=== PATIENT | male | born 1960 | race Caucasian/White ===

== ENCOUNTER → 2016-06-19 | Outpatient (CLI) | payer BC ==
[2016-06-19 14:45] LABS: BASO % 0.2 %; BASO ABS # 0.02 K/uL (0-0.2); COMPLETE YES; EOS % 0.2 %; IG% 0.7 %; LYMPH % 28.8 %; LYMPH ABS # 3.41 K/uL (1.2-3.4); MEAN CORPUSCULAR HGB CONC 35.4 g/dl (32-36); MEAN PLATELET VOLUME 10.7 fL (7.4-10.4); MONO % 10.3 %; NEUT % 59.8 %; PLATELET COUNT 312 K/uL (130-400); RED BLOOD COUNT 3.94 M/uL (4.7-6.1); WHITE BLOOD COUNT 11.83 K/uL (4.8-10.8)
[2016-06-19 14:55] LABS: ALT/SGPT 38 U/L (12-78); BLOOD UREA NITROGEN 9 mg/dl (7-18); BUN/CREATININE RATIO 11.3 (10-20); CALCIUM 9.5 mg/dl (8.5-10.1); CARBON DIOXIDE 23 mmol/L (21-32); CHLORIDE 97 mmol/L (98-107); CREATININE 0.82 mg/dl (0.60-1.40); GLUCOSE 100 mg/dl (70-99); POTASSIUM 4.1 mmol/L (3.5-5.1); SODIUM 132 mmol/L (136-145)
[2016-06-19 14:58] LABS: ALB/GLOB RATIO 1.1 (0.9-2); ALKALINE PHOSPHATASE 128 U/L (45-117); AST/SGOT 27 U/L (15-37)
== END | disposition home or self-care (01) ==
LOC: C.LAB1850 12:52
PROVIDERS: ATTEND Internal Medicine Infectious Disease
DX: M70.22 Olecranon bursitis, left elbow (principal)

== ENCOUNTER → 2016-07-26 | Outpatient (CLI) | payer BC ==
[2016-07-26 12:24] LABS: BASO % 0.1 %; BASO ABS # 0.01 K/uL (0-0.2); COMPLETE YES; EOS % 0.3 %; HEMATOCRIT 41.1 % (42-52); IG% 0.6 %; LYMPH ABS # 3.57 K/uL (1.2-3.4); MEAN CELL VOLUME 101.5 fL (80-100); MEAN CORPUSCULAR HEMOGLOBIN 34.6 pg (25-34); MEAN CORPUSCULAR HGB CONC 34.1 g/dl (32-36); MEAN PLATELET VOLUME 10.7 fL (7.4-10.4); MONO % 11.2 %; NEUT % 51.8 %; PLATELET COUNT 355 K/uL (130-400); RED BLOOD COUNT 4.05 M/uL (4.7-6.1); WHITE BLOOD COUNT 9.91 K/uL (4.8-10.8)
[2016-07-26 13:55] LABS: ALB/GLOB RATIO 1.1 (0.9-2); ALKALINE PHOSPHATASE 172 U/L (45-117); ALT/SGPT 33 U/L (12-78); AST/SGOT 21 U/L (15-37); BLOOD UREA NITROGEN 9 mg/dl (7-18); BUN/CREATININE RATIO 9.7 (10-20); C-REACTIVE PROTEIN 0.39 mg/dl (0-0.29); CALCIUM 9.7 mg/dl (8.5-10.1); CARBON DIOXIDE 24 mmol/L (21-32); CHLORIDE 95 mmol/L (98-107); GLUCOSE 101 mg/dl (70-99); POTASSIUM 3.7 mmol/L (3.5-5.1); SODIUM 130 mmol/L (136-145)
[2016-07-28 16:39] LABS: QUANTIFERON NIL 0.05 IU/ML
== END | disposition home or self-care (01) ==
LOC: C.LAB1850 10:32
PROVIDERS: ATTEND Internal Medicine Infectious Disease
DX: M70.22 Olecranon bursitis, left elbow (principal)